=== PATIENT | female | born 1990 | race Caucasian/White ===

== ENCOUNTER 2021-07-13 18:09 | Emergency (ER) | payer OTHER ==
[~2021-07-13] VITALS: Ht 160 cm; Wt 88.5 kg
[2021-07-13] MEDS ORDERED: NAPROXEN 500 MG TABLET PO ONE (18:30)
[2021-07-13] MEDS ORDERED: NAPROXEN 500 MG TABLET ONE (18:34)
--- NOTE | 2021-07-13 18:47 | NUR ---
Patient discharged to home in stable condition. Written and verbal after care instructions given. Patient verbalizes understanding of instructions. Stressed follow up or return to ER for worsening s/s.
== END 2021-07-13 18:50 | disposition home or self-care (01) ==
LOC: ER 18:13
DX: S63.501A Unspecified sprain of right wrist, initial encounter (principal); W18.39XA Other fall on same level, initial encounter; Y93.89 Activity, other specified; Y92.89 Other specified places as the place of occurrence of the external cause; Y99.0 Civilian activity done for income or pay; Y35.891A Legal intervention involving other specified means, law enforcement official injured, initial encounter
CPT/HCPCS: 73110; A4663